=== PATIENT | female | born 1995 | race African-American/Black ===

== ENCOUNTER 2020-04-20 12:15 | Day surgery (SDC) | payer MEDICAID ==
[2020-04-20 13:01] VITALS: BMI 47.0
[2020-04-20] MEDS ORDERED: Acetaminophen 500 MG TAB PO SCH (13:30)
--- NOTE | 2020-04-20 13:49 | PDOC.LDHP ---
Labor and Delivery H&P Chief complaint: contractions HPI: Patient is a 24 yo incarcerated female at 33.5 wga who presents with complaints of headache and contractions. States that she started to feel contractions around 1030 this morning, her headache started about an hour ago. Denies any LOF, vaginal bleeding, vision changes, chest pain, palpitations, n/v , dysuria, burning, itching, diarrhea. She does have some scant white vaginal discharge. Patient reports that she just finished taking Flagyl she was prescribed for yellow discharge on 04/06/2020. At that time she was seen at [facility] and found that to have Gardnerella on VP3. Feels that those symptoms have improved. Her cervix was checked on that visit and found to be closed/thick/-3. Patient has been receiving care from Dr. Jovan Wagoner in [place], [place] up until recently. Currently is incarcerated with [facility] and so have been receiving OB care through them. States she has not had any issues with this . Current gestational age (weeks): 33 (33.5) Due date: 06/03/20 Dating criteria: last menstrual period Grav: 6 Para: 5 ([id number]) OB History Details: 5 previous pregnancies, all term, all with no complications per patient report Currently taking PNV and iron with this Current complications: none Past Medical History: no major issues Current medications: pre-julianna vitamins, iron Previous surgical history: cholecystectomy (2012) Allergies/Adverse Reactions: Allergies Allergy/AdvReac Type Severity Reaction Status Date / Time No Known Allergies Allergy Verified 04/06/20 22:08 Social history: none - Physical Exam Vital signs reviewed and normal: yes General: NAD Lungs: nonlabored breathing Abdomen: gravid Extremeties: no edema FHT: category 1 (FHR 145), variability present Thurston contractions every: random - Vaginal Exam cm dilated: 1 Effacement: 0% Station: -3 - OB Labs Blood type: unknown RH: unknown Antibody Screen: unknown HIV: unknown RPR: unknown HEPSAg: unknown 1 hour GCT: unknown GBS: unknown - Assessment Third Trimester - Plan Plan: observation in L&D -: 24 yo at 33.5 wga presents with contractions and headache: Third Trimester -continuous external monitor shows reactive strip and occasional contractions, patient not in labor -cervical check on 04/06 was closed/th/high, today is 10/-3 -no records for PNC, but patient states she had regular appointments with previous OB Dr. Jovan Wagoner in [place] -continue PNV Headache -give 500 mg Acetaminophen now Vaginal Discharge, resolved -previously positive for Gardnerella on 04/06, has completed Flagyl course -current discharge wnl for Anemia of -continue oral iron Dispo: Stable, will observe on L&D and give Tylenol for symptom management. 04/20/2020, 1345 Addendum: Patient given water and Tylenol, feeling better. Not currently in labor. Will discharge back to [facility]. DO Lindsey, PGY-2 Addendum - Attending - Attending Attestation Date/Time: 04/20/20 1430 I personally evaluated the patient and discussed the management with Dr. Nicholas. I agree with the History, Examination, Assessment and Plan documented above.
== END 2020-04-20 13:53 ==
LOC: EEVIPCON 12:15 → L&D/OP 12:15
PROVIDERS: ATTEND Obstetrics & Gynecology
DX: O47.03 False labor before 37 completed weeks of gestation, third trimester (principal); O99.89 Other specified diseases and conditions complicating pregnancy, childbirth and the puerperium; R51 Headache; O99.013 Anemia complicating pregnancy, third trimester; D64.9 Anemia, unspecified; Z3A.33 33 weeks gestation of pregnancy; Z79.899 Other long term (current) drug therapy
CPT/HCPCS: 99283